=== PATIENT | female | born 1980 | race Caucasian/White ===

== ENCOUNTER → 2023-07-12 14:57 | Outpatient (BNVA) | payer MEDICAID, SELFPAY | PROVIDERS: Family Provider Family Medicine; PCP Family Medicine; Visit Provider Obstetrics & Gynecology | DX: Z01.419 Encounter for gynecological examination (general) (routine) without abnormal findings (principal); N93.9 Abnormal uterine and vaginal bleeding, unspecified | CPT/HCPCS: 87491; 87591; 87624 ==

== ENCOUNTER 2023-07-19 08:22 | Outpatient (CLI) | payer OTHER, MEDICAID, SELFPAY ==
--- NOTE | 2023-07-19 08:30 | US_ITS ---
WS: [id number] Complete ABDOMINAL ULTRASOUND HISTORY: R10.9 - Unspecified abdominal pain COMPARISON: None available. Liver: 14.8 cm in length. Normal size liver and echogenicity. No bile duct dilatation or mass. Portal Vein: Normal hepatopetal flow with monophasic waveform. Gallbladder: Normally distended gallbladder with no stones or wall thickening. CBD: 0.3 cm Pancreas: Partially visualized. Right kidney: 10.3 cm x 6.4 x 3.5 cm. Cortex:1.0 cm. Normal size and echogenicity. No hydronephrosis or mass. Left kidney: 10.2 cm x 5.8 cm x 4.0 cm. Cortex: 1.3 cm. Normal size and echogenicity. No hydronephrosis or mass. Spleen: 9.0 cm; normal. Aorta and IVC: Unremarkable abdominal aorta and IVC. Impression: Normal complete abdomen ultrasound.
--- NOTE | 2023-07-19 09:45 | US_ITS ---
WS: [id number] US pelvic complete* [id number] HISTORY: N92.0 - Excessive and frequent menstruation with regular ... COMPARISON: None available. Uterus: 9.1 cm x 6.1 cm x 4.5 cm. Anteverted uterus. Poorly visualized uterus and myometrium. No fibroid is identified. Endometrium: 1.4 cm. Normal size endometrium. Ovoid area of increased echogenicity in the fundus of t he endometrium measures 1.1 x 0.7 x 1.1 cm. Slight distortion of the central endometrial canal cavity . This is suspicious for a polyp. No increased vascularity was identified. Right ovary: 4.0 cm x 2.7 cm x 3.4 cm. Normal size and vascularity, no cystic or solid masses. Small follicles. No cystic or solid mass. Left ovary: 2.8 cm x 3.4 cm x 2.1 cm. Normal size and vascularity, no cystic or solid masses. No free fluid in the cul-de-sac. IMPRESSION: 1. Hyperechoic mass in the fundal portion of the endometrium measures 1.1 x 0.7 x 1.1 cm. Suspicious for an endometrial polyp. Recommend direct visualization and possible biopsy. 2. Poorly visualized uterus. No fibroid identified.
== END 2023-07-19 08:23 | disposition home or self-care (01) ==
LOC: RAD 08:23
PROVIDERS: PCP Family Medicine; Visit Provider Obstetrics & Gynecology
DX: R10.12 Left upper quadrant pain (principal); N92.0 Excessive and frequent menstruation with regular cycle
CPT/HCPCS: 76700; 76856

== ENCOUNTER 2023-07-25 09:38 | Outpatient (CLI) | payer OTHER, MEDICAID, SELFPAY ==
--- NOTE | 2023-07-25 10:00 | MM_ITS ---
WS: [id number] BILATERAL 3D TOMOSYNTHESIS DIGITAL SCREENING MAMMOGRAPHY WITH CAD CLINICAL INFORMATION: Z12.39 - Encounter for other screening for malignant neop... HISTORY: Screening mammogram. No current complaints. COMPARISON: Baseline TECHNIQUE: Bilateral CC and MLO views. FINDINGS: Scattered fibroglandular densities bilaterally. No suspicious focal mass, asymmetry, calcifications, or architectural distortion. No evidence of malignancy. IMPRESSION: MM/[place] [id number] BI-RADS: 1-Negative FOLLOW UP: 1 Year Follow-up Recommend return to annual screening mammography.
== END 2023-07-25 09:39 | disposition home or self-care (01) ==
LOC: RAD 09:39
PROVIDERS: PCP Family Medicine; Visit Provider Obstetrics & Gynecology
DX: Z12.31 Encounter for screening mammogram for malignant neoplasm of breast (principal)
CPT/HCPCS: 77063; 77067

== ENCOUNTER 2023-09-21 09:34 | Day surgery (SDC) | payer MEDICAID, SELFPAY ==
[2023-09-21] VITALS (12 sets, daily range): BP systolic 137–178; BP diastolic 93–110; PULSE 47–72; RESP 12–18; TEMP 36.3–36.4; O2SAT 93–100; BMI 30.8
--- NOTE | 2023-09-21 01:25 | W.PM.OPSFHP ---
Same Day Surgery H&P Indication for Procedure/HPI DATE OF PROCEDURE: September 21, 2023 CHIEF COMPLAINT/INDICATIONFOR SURGICAL PROCEDURE: abnormal uterine bleeding PREOP DIAGNOSIS: abnormal uterine bleeding PLANNED PROCEDURE: Operation Date: 09/21/23 11:15 Proposed Procedures p Hysteroscopy Hysteroscopy w/ Endometrial Sampling and possible endometrial polypectomy(Not Applicable) - Sarwat Barron MD 42 y.o. L8 (twins) h/o BTL periods normal and regular but extremely heavy endometrial polyp seen on pelvic sono now scheduled for hysteroscopy, endometrial sampling, possible endometrial polypectomy Medications/Allergies* Home Medications Medication Instructions Recorded Confirmed Type No Known Home Medications 07/12/23 09/20/23 History Allergies/Adverse Reactions Allergy/AdvReac Type Severity Reaction Status Date / Time No Known Allergies Allergy Verified 09/20/23 11:15 Pertinent History/Comorbid Conditions* Family History (Updated 07/12/23 @ 14:40 by Taylor Prakash LPN) Diabetes Grandfather Hypertension Mother Stroke Mother Denies family history of Colon cancer Ovarian cancer Prostate cancer Heart disease Hypercholesteremia Breast cancer Uterine cancer Thyroid disease Pertinent Exam Findings alert, oriented x 3, clear to auscultation bilaterally and regular rate & rhythm Pertinent Data Pelvic sono 07-19-23 uterus 9.1 x 6.1 x 4.5 cm Endometrium 1.4 cm Endometrial polyp 1.1 cm Normal ovaries Recommendations Surgery/Procedure today Coding Level of Care Code Acute Code for Chg Fwd Time Spent (min) 20
--- NOTE | 2023-09-21 10:07 | ANES.PREANE2 ---
Pre-Anesthetic Assessment Height/Weight: Height 1.6 m Preop Diagnosis: abnormal uterine bleeding Operation Date: 09/21/23 11:15 Proposed Procedures p Hysteroscopy Hysteroscopy w/ Endometrial Sampling and possible endometrial polypectomy(Not Applicable) - Sarwat Barron MD Social No alcohol and No tobacco Exam alert, oriented x 3, clear to auscultation bilaterally and regular rate & rhythm Airway Submandibular: within normal limits Cervical ROM: within normal limits Mallampati: Class I History/ROS No significant history except as noted Anesthetic Plan ASA status: 2 Anesthesia: General Medications/Allergies Home Medications Medication Instructions Recorded Confirmed Last Taken Type No Known Home Medications 07/12/23 09/20/23 Unknown History Allergies Allergy/AdvReac Type Severity Reaction Status Date / Time No Known Allergies Allergy Verified 09/20/23 11:15 [facility] Anesthesia Family History Mother Hypertension Stroke Grandfather Diabetes Denies family history of Colon cancer Ovarian cancer Prostate cancer Heart disease Hypercholesteremia Breast cancer Uterine cancer Thyroid disease Data Anesthesia Cardiac Studies: No Data to Display
[2023-09-21 10:18] LABS: OR HCG Qualitative Urine Negative (Negative)
[2023-09-21] MEDS: sodium chloride 0.9% 1,000 ML 30 ML IV (10:29)
--- NOTE | 2023-09-21 10:32 | W.PM.OPSUD ---
Surgery/Procedure H&P Update DATE OF PROCEDURE: September 21, 2023 DATE H&P PERFORMED: 09/21/23 H&P UPDATE INFORMATION: I have reviewed H&P completed within last 30 days, I have examined patient prior to procedure and No changes to prior documentation PREOP DIAGNOSIS: abnormal uterine bleeding PLANNED PROCEDURE: Operation Date: 09/21/23 11:15 Proposed Procedures p Hysteroscopy Hysteroscopy w/ Endometrial Sampling and possible endometrial polypectomy(Not Applicable) - Sarwat Barron MD
[2023-09-21] MEDS: midazolam 1 mg/mL INJ 2 mL 2 MG IVP (10:34)
--- NOTE | 2023-09-21 12:10 | PM.OP ---
Operative Report Date of procedure: September 21, 2023 Pre-op diagnosis: abnormal uterine bleeding Post-op diagnosis: same Post-op findings: moderate endometrial tissue in patches One 1 cm benign-appearing endometrial polyp Procedure done: Hysteroscopy Endometrial sampling and polypectomy with Myosure Implants: none Specimens removed/disposition: endometrial polyp and endometrial tissue Surgeon: Sarwat Barron MD Anesthesia: MAC Estimated blood loss (mL): 0 Complications: none Condition: stable Disposition: PACU Brief History: 42 y.o. h/o BTL periods normal and regular but extremely heavy endometrial polyp seen on pelvic sono Procedure: Informed consent signed. Patient was taken to the operating room. Anesthesia was induced. Patient was placed in dorsolithotomy position, prepped and draped for hysteroscopy. A bivalve speculum was placed in the vagina. The anterior lip of the cervix was grasped with a sharp-toothed tenaculum. The cervix was serially dilated with Hegar dilators. . A hysteroscope was placed into the endometrial cavity. The endometrial cavity was seen have patches of endometrial tissue. There were one 1 cm benign-appearing polyp. A Myosure was then inserted and the polyp was removed. Endometrial sampling was also done with the Myosure device. The endometrial cavity was seen to be intact. The hysteroscope and Myosure were then removed. Endometrial tissue was sent to pathology. The sharp-toothed tenaculum was removed. There was no bleeding from the endometrial cavity or cervix. The patient was then placed supine and awakened and taken to the PACU. Postop condition: stable EBL: none Sponge and instruments counts were normal x 2 Complications: none
--- NOTE | 2023-09-21 15:00 | ANE.PACU2 ---
Inpatient post-anesthesia follow up: Vital signs: Temperature 97.3 F Pulse Rate 64 Respiratory Rate 18 Blood Pressure 152/105 Pulse Oximetry 100 Oxygen Delivery Me thod Room Air Oxygen Flow Rate Fraction of Inspir ed Oxygen Hydration adequate: Yes Nausea and vomiting: No Pain level: 4 Mental status: Baseline
== END 2023-09-21 13:03 | disposition home or self-care (01) ==
PROVIDERS: Anesthesiology; PCP Family Medicine; Visit Provider Obstetrics & Gynecology
PROC: 0UJD8ZZ Inspection of Uterus and Cervix, Via Natural or Artificial Opening Endoscopic (ICD-10-PCS; CPT 58555; principal; 2023-09-21 11:05)
DX: N89.8 Other specified noninflammatory disorders of vagina (principal); N84.0 Polyp of corpus uteri
CPT/HCPCS: 58558; 81025; 88305; J1100; J1885; J2250; J2405; J2704; J3010; J7030

== ENCOUNTER 2023-09-27 11:15 | Outpatient (CLI) | payer MEDICAID, SELFPAY | END 2023-09-27 11:16 | disposition home or self-care (01) | PROVIDERS: PCP Family Medicine; Visit Provider Family Medicine | DX: B19.20 Unspecified viral hepatitis C without hepatic coma (principal) | CPT/HCPCS: 80053; 84443; 85025; 86705; 86706; 86709; 86803; 87340; 87522; 87806; 87902 ==

== ENCOUNTER 2023-11-01 13:00 | Outpatient (CLI) | payer MEDICAID, SELFPAY | END 2023-11-01 13:01 | disposition home or self-care (01) | LOC: LAB 13:01 | PROVIDERS: PCP Family Medicine; Visit Provider Family Medicine | DX: B19.20 Unspecified viral hepatitis C without hepatic coma (principal) | CPT/HCPCS: 87522 ==

== ENCOUNTER 2023-11-21 14:26 | Outpatient (CLI) | payer MEDICAID, SELFPAY ==
[2023-11-21 15:02] LABS: Blood Urea Nitrogen 10 mg/dL (6-20); Carbon Dioxide 19 mmol/L (22-29); Chloride 104 mmol/L (98-107); Glomerular Filtration Rate 109.1 mL/min (90-130); Glucose 125 mg/dL (65-115); Osmolality Calculated 283 mOsm/kg (285-295); Sodium 136 mmol/L (136-145)
[2023-11-21 15:08] LABS: Anion Gap 17.1 (5-19); Potassium 4.1 mmol/L (3.5-5.1)
[2023-11-21 15:24] LABS: Estmated Average Glucose 85; Hemoglobin A1C 4.6 % (4.0-6.0)
[2023-11-21 20:54] LABS: 25 Hydroxy Vitamin D 47 ng/mL (30-100); Vitamin B12 536 pg/mL (232-1245)
== END 2023-11-21 14:27 | disposition home or self-care (01) ==
LOC: LAB 14:27
PROVIDERS: PCP Family Medicine; Visit Provider Family Medicine
DX: R53.83 Other fatigue (principal); I10 Essential (primary) hypertension; R73.9 Hyperglycemia, unspecified
CPT/HCPCS: 36415; 80048; 82306; 82607; 83036

== ENCOUNTER 2023-12-26 10:50 | Day surgery (SDC) | payer BC, MEDICAID, SELFPAY ==
[2023-12-26 11:16] VITALS: BP 119/87; PULSE 61; RESP 18; TEMP 36.4; O2SAT 99; BMI 31.8
--- NOTE | 2023-12-26 11:16 | P.HPUD_ITS ---
Surgery/Procedure H&P Update DATE OF PROCEDURE: December 26, 2023 DATE H&P PERFORMED: 12/06/23 H&P UPDATE INFORMATION: I have reviewed H&P completed within last 30 days, I have examined patient prior to procedure, No changes to prior documentation and H&[place] [facility] [place] date indicated PLANNED PROCEDURE: Operation Date: 12/26/23 11:55 Proposed Procedures p Colonoscopy 03403, G0105, K59.09, R10.9(Not Applicable) - Everton Cruz MD
--- NOTE | 2023-12-26 11:16 | W.PM.OPSUD ---
Surgery/Procedure H&P Update DATE OF PROCEDURE: December 26, 2023 DATE H&P PERFORMED: 12/06/23 H&P UPDATE INFORMATION: I have reviewed H&P completed within last 30 days, I have examined patient prior to procedure, No changes to prior documentation and H&P is in [facility] on date indicated PLANNED PROCEDURE: Operation Date: 12/26/23 11:55 Proposed Procedures p Colonoscopy 27776, G0105, K59.09, R10.9(Not Applicable) - Everton Cruz MD
[2023-12-26] MEDS: sodium chloride 0.9% 1,000 ML 30 ML IV (11:20)
--- NOTE | 2023-12-26 12:10 | PC.NURSE ---
Difficult IV start. after 4 attempts per 2 nurses iv was placed in right foot per anesthesia without difficulty.
--- NOTE | 2023-12-26 12:13 | ANES.PREANE2 ---
Pre-Anesthetic Assessment Height/Weight: Height 1.6 m Weight 81.647 kg Temp Pulse Resp BP Pulse Ox O2 Del Method 97.5 F L 61 18 119/87 99 Room Air 12/26/23 11:16 12/26/23 11:16 12/26/23 11:16 12/26/23 11:16 12/26/23 11:16 12/26/23 11:16 Preop Diagnosis: Constipation Operation Date: 12/26/23 11:55 Proposed Procedures p Colonoscopy 86538, G0105, K59.09, R10.9(Not Applicable) - Everton Cruz MD Was Beta Amira taken within 24 hours: Yes Was Clonidine taken within 24 hours: N/A Last intake: Intake Last Liquid Date 12/26/23 Last Liquid Time 02:00 Last Solid Date 12/24/23 Last Solid Time 21:00 Social Tobacco Hx IV drug use Exam alert, oriented x 3, clear to auscultation bilaterally and regular rate & rhythm Airway Submandibular: within normal limits Cervical ROM: within normal limits Mallampati: Class II Dentition: full History/ROS No significant history except as noted and No significant complaints Pulmonary None reported CV/HEM Hypertension None reported Hepatic Hepatitis GI None reported Metabolic None reported Musc/skel None reported Neuropsych None reported Anesthetic Plan ASA status: 3 Anesthesia: Anesthesia Evaluation and MAC Risk of > 500 ml blood loss (7ml/kg in children): No Medications/Allergies Home Medications Medication Instructions Recorded Confirmed Last Taken Type blood pressure cuff #1 ea 11/01/23 12/26/23 Unknown Rx clonidine HCl 0.1 mg tablet 0.1 mg PO BID PRN high blood 11/28/23 12/26/23 Unknown History pressure venlafaxine 75 mg capsule,extended 75 mg PO DAILY #90 caps 12/04/23 12/26/23 12/25/23 Rx release 24 hr amlodipine 10 mg tablet 10 mg PO DAILY #30 tabs 12/26/23 12/26/23 12/26/23 09:00 Rx lisinopril 10 mg tablet 10 mg PO DAILY #30 tabs 12/26/23 12/26/23 12/25/23 Rx Allergies Allergy/AdvReac Type Severity Reaction Status Date / Time No Known Allergies Allergy Verified 12/21/23 10:53 Current Medications Generic Name Dose Route Start Last Admin Trade Name Freq PRN Reason Stop Dose Admin Sodium Chloride 1,000 mls @ 30 mls/hr 12/26/23 11:00 12/26/23 11:20 Sodium Chloride 0.9% IV 30 mls/hr .Q24H JEANA Administration PFSH Anesthesia Medical History Constipation Smoker Hepatitis C Surgical History History of bilateral tubal ligation History of hysteroscopy Family History Mother Hypertension Stroke Grandfather Diabetes Denies family history of Colon cancer Ovarian cancer Prostate cancer Heart disease Hypercholesteremia Breast cancer Uterine cancer Thyroid disease Social History Smoking and tobacco/nicotine status: current every day tobacco/nicotine user Data Anesthesia Cardiac Studies: No Data to Display
[2023-12-26 12:38] VITALS: BP 106/70; PULSE 63; RESP 18; TEMP 36.5; O2SAT 99
--- NOTE | 2023-12-26 15:11 | ANE.PACU2 ---
Inpatient post-anesthesia follow up: Airway intact: Yes Vital signs: Temperature 97.7 F Pulse Rate 63 Respiratory Rate 18 Blood Pressure 106/70 Pulse Oximetry 99 Oxygen Delivery Me thod Room Air Oxygen Flow Rate Fraction of Inspir ed Oxygen Hydration adequate: Yes Nausea and vomiting: No Pain level: 2 Mental status: Baseline
== END 2023-12-26 13:02 | disposition home or self-care (01) ==
PROVIDERS: PCP Family Medicine; Visit Provider Surgery
PROC: 0DJD8ZZ Inspection of Lower Intestinal Tract, Via Natural or Artificial Opening Endoscopic (ICD-10-PCS; CPT 45378; principal; 2023-12-26 11:55)
DX: K59.09 Other constipation (principal); K64.4 Residual hemorrhoidal skin tags; G89.29 Other chronic pain; I10 Essential (primary) hypertension; B19.20 Unspecified viral hepatitis C without hepatic coma; F17.200 Nicotine dependence, unspecified, uncomplicated
CPT/HCPCS: 45378; J2704; J7030

== ENCOUNTER → 2024-01-10 13:20 | Outpatient (BNVA) | payer BC, MEDICAID, SELFPAY | PROVIDERS: PCP Family Medicine; Referring Provider Family Medicine; Visit Provider Specialist | DX: G56.03 Carpal tunnel syndrome, bilateral upper limbs (principal); Z01.818 Encounter for other preprocedural examination | CPT/HCPCS: 36415; 73130; 80053; 81003; 81015; 85025 ==

== ENCOUNTER 2024-01-17 08:13 | Outpatient (CLI) | payer BC, MEDICAID, SELFPAY ==
--- NOTE | 2024-01-17 09:15 | CT_ITS ---
WS: [id number] CT ABDOMEN AND PELVIS WITH CONTRAST HISTORY: Abdominal pressure in upper right quad TECHNIQUE: Imaging performed of the abdomen and pelvis with IV contrast. Single phase imaging of the abdomen. Coronal and sagittal reformats are submitted. All CT scans at [facility] use at [facility] one of these dose optimization techniques: automated exposure control; mA and/or kV adjustment per patient size (includes targeted exams where dose is matched to clinical indication); or iterative re construction. IV CONTRAST: Omnipaque 350; 100 mL IV. Oral contrast: Yes. DLP: 499.94 mGy.cm COMPARISON: None available. Lower thorax: Lung bases are clear. Heart is normal size. No hiatal hernia. Liver/biliary system: Normal size liver. Mild focal fatty sparing along the falciform ligament. Renae l portal vein. Gallbladder: Normal. No gallstones or wall thickening. No pericholecystic fluid. Pancreas: Normal size pancreas and pancreatic duct. No adjacent inflammation. Spleen: Normal size spleen. No mass or infarct. Adrenal glands: Normal. Right kidney: Normal. Left kidney: Normal. Aorta: Normal. Lymphadenopathy: None. Free fluid: None. GI tract: Normal stomach. No small bowel obstruction. In the ascending colon there are adjacent areas of circumferential wall thickening with narrowing of the lumen which need to be further evaluated. T he longest luminal narrowing extends over a length of 3.8 cm in the ascending colon. Abdominal wall: Unremarkable abdominal wall. No hernia. Pelvis: No free fluid or adenopathy within the pelvis. LEFT ovarian follicles measure up to 2.1 cm. Bones: Unremarkable. CT/CT abdomen pelvis w con* [id number] IMPRESSION: 1. In the ascending colon there are 2 separate areas of luminal narrowing with circumferential wall thickening which need to be further evaluated for possibl e neoplasm. These could be separate areas of peristalsis resulting in luminal n arrowing. There also does appear to be slight change in caliber of the more pro ximal colon at this location. Recommend follow-up colonoscopy. 2. No ascites and no adenopathy.
[2024-01-17] MEDS: iohexol 350 mg/mL 500 mL Btl (per mL) PO (10:30)
[2024-01-17] MEDS: iohexol 350 mg/mL 500 mL Btl (per mL) IV (10:30)
== END 2024-01-17 08:14 | disposition home or self-care (01) ==
LOC: RAD 08:14
PROVIDERS: PCP Family Medicine; Visit Provider Surgery
DX: K63.89 Other specified diseases of intestine (principal); R10.9 Unspecified abdominal pain; G89.29 Other chronic pain
CPT/HCPCS: 36415; 73130; 74177; 80053; 81003; 81015; 85025; Q9967

== ENCOUNTER → 2024-01-19 09:17 | Outpatient (BNVA) | payer BC, MEDICAID, SELFPAY | PROVIDERS: PCP Family Medicine; Visit Provider Family Medicine | DX: Z01.818 Encounter for other preprocedural examination (principal) | CPT/HCPCS: 81003 ==

== ENCOUNTER 2024-02-08 05:49 | Day surgery (SDC) | payer BC, MEDICAID, SELFPAY ==
[2024-02-08] VITALS (11 sets, daily range): BP systolic 126–158; BP diastolic 81–100; PULSE 57–81; RESP 12–18; TEMP 36.5–36.7; O2SAT 97–100
[2024-02-08] MEDS: CELEcoxib 200 mg Capsule 400 MG PO (06:21)
[2024-02-08] MEDS: gabapentin 300 mg Capsule PO (06:22)
[2024-02-08] MEDS: sodium chloride 0.9% 1,000 ML 30 ML IV (06:31)
--- NOTE | 2024-02-08 06:35 | ANES.PREANE2 ---
Pre-Anesthetic Assessment Height/Weight: Height 5 ft 3 in Weight 186 lb Temp Pulse Resp BP Pulse Ox O2 Del Method 97.7 F 57 L 16 142/81 99 Room Air 02/08/24 06:05 02/08/24 06:05 02/08/24 06:05 02/08/24 06:05 02/08/24 06:05 02/08/24 06:05 Preop Diagnosis: Carpal tunnel syndrome Operation Date: 02/08/24 07:00 Proposed Procedures p Carpal Tunnel Release(Right) - Belem Winter MD Was Beta Amira taken within 24 hours: N/A Was Clonidine taken within 24 hours: Yes Last intake: Intake Last Liquid Date 02/07/24 Last Liquid Time 20:00 Last Solid Date 02/07/24 Last Solid Time 17:30 Social Tobacco and No alcohol Exam alert, oriented x 3, clear to auscultation bilaterally and regular rate & rhythm Airway Submandibular: within normal limits Cervical ROM: within normal limits Mallampati: Class II Dentition: other (Few missing teeth, denies any loose) Anesthetic Plan ASA status: 2 Anesthesia: General Other: No prior issues with anesthesia NPO since midnight History of hypertension, takes amlodipine, lisinopril and clonidine Prior hep C, completed treatment Labs reviewed 01/10/2024 Current smoker METs greater than 4 Plan for general anesthesia with LMA Medications/Allergies Home Medications Medication Instructions Recorded Confirmed Last Taken Type blood pressure cuff #1 ea 11/01/23 02/08/24 Unknown Rx clonidine HCl 0.1 mg tablet 0.1 mg PO BID PRN high blood 11/28/23 02/08/24 Unknown History pressure venlafaxine 75 mg capsule,extended 75 mg PO DAILY #90 caps 12/04/23 02/08/24 02/07/24 Rx release 24 hr amlodipine 10 mg tablet 10 mg PO DAILY #30 tabs 01/26/24 02/08/24 02/07/24 Rx lisinopril 10 mg tablet 10 mg PO DAILY #30 tabs 01/26/24 02/08/24 02/07/24 Rx Allergies Allergy/AdvReac Type Severity Reaction Status Date / Time No Known Allergies Allergy Verified 02/07/24 15:57 [facility] Anesthesia Medical History Constipation Smoker Hepatitis C Surgical History History of bilateral tubal ligation History of hysteroscopy Family History Mother Hypertension Stroke Grandfather Diabetes Denies family history of Colon cancer Ovarian cancer Prostate cancer Heart disease Hypercholesteremia Breast cancer Uterine cancer Thyroid disease Social History Smoking and tobacco/nicotine status: current every day tobacco/nicotine user Female Reproductive History Date of last menstrual period: 01/28/24 Data Anesthesia Cardiac Studies: No Data to Display
[2024-02-08] MEDS: acetaminophen 1,000 MG/100 ML PIGGYBACK 400 MG IV (06:37)
[2024-02-08 06:39] LABS: OR HCG Qualitative Urine Negative (Negative)
--- NOTE | 2024-02-08 06:57 | P.HPUD_ITS ---
Surgery/Procedure H&P Update DATE OF PROCEDURE: February 08, 2024 DATE H&P PERFORMED: 01/19/24 H&P UPDATE INFORMATION: I have reviewed H&P completed within last 30 days, I have examined patient prior to procedure, No changes to prior documentation and [place] [facility] [place] indicated PREOP DIAGNOSIS: Carpal tunnel syndrome PLANNED PROCEDURE: Operation Date: 02/08/24 07:00 Proposed Procedures p Carpal Tunnel Release(Right) - Belem Winter MD Related Problem List Diagnoses (1) Carpal tunnel syndrome on right:
[2024-02-08] MEDS: ceFAZolin 2,000 mg SDV 2000 MG IVP (06:59)
[2024-02-08] MEDS: BUPivacaine 0.5% INJ 30 mL XX (07:35)
--- NOTE | 2024-02-08 08:01 | P.OP_ITS ---
Operative Report Date of procedure: February 08, 2024 Pre-op diagnosis: Right carpal tunnel syndrome Post-op diagnosis: Right carpal tunnel syndrome Post-op findings: Very tight carpal canal with compression across the median nerve. Purplish discoloration and hourglass shape Procedure done: Right carpal tunnel release Implants: None Specimens removed/disposition: None Surgeon: Belem Winter MD Medical Collections Representative: None Anesthesia: General (Per LMA, ASA 2) Estimated blood loss (mL): 2 Tourniquet time (min): 14 (At 250 mmHg) IV fluids (mL): 650 Urine output (mL): 0 (No Garrett) Complications: None Findings: Severe compression across the median nerve with purplish discoloration and hourglass deformity Condition: stable Disposition: PACU (Then return to same-day surgery for discharge to home) Brief History: This 43-year-old woman presented with complaints of bilateral carpal tunnel syndrome. Her right was worse than her left. She had nerve conduction study documentation of severe entrapment at the right wrist with normal ulnar nerves. After discussion in the office, the patient wished to proceed with right carpal tunnel release. Risks and complications were discussed with her. Consents were signed and questions were answered. Procedure: The patient was brought to the operating theater. The patient had a general anesthesia per LMA, ASA 2. The tourniquet was elevated to 250 mmHg for a total tourniquet time of 14 minutes. The patient was also given Ancef 2 g preoperatively. The arm was then prepped and draped with DuraPrep in usual fashion with the arm draped free. A surgical pause was performed. At the time, the surgical pause, we confirmed the site and side of surgery. We also confirmed the patient's identity, appropriate and timely administration of preoperative antibiotics and preoperative surgical markings. An incision was then made along the thenar crease in a curvilinear fashion. Dissection continued through skin and soft tissues using a scalpel. The palmaris longus was identified along with the transverse carpal ligament. Each of these was released carefully to avoid injury to the median nerve. We were able to dissect gently into the carpal canal which was noted to be quite tight with significant compression across the median nerve. The nerve was visualized and was an hourglass shape with purplish discoloration. The canal was subsequently palpated to assure there was no bony encroachment upon the canal. There was a quite thickened fibrous tissue within the canal, and this was opened longitudinally as well. The canal was then palpated distally and proximally to assure that my small finger was passed easily without impingement. Finding this to be so, attention was directed to closure. The wound was irrigated with ropivacaine plain. It was then closed with 3-0 nylon in an interrupted mattress fashion. Sterile dressing was then placed consisting of Dermabond, OpSite, fluffed fluffs, sterile soft roll, and an Lior wrap. The tourniquet was released after 14 minutes. There were no complications. There were no specimens. The procedure was well tolerated. Plan is the patient will be discharged home. Related Problem List Diagnoses (1) Carpal tunnel syndrome on right:
--- NOTE | 2024-02-08 09:00 | ANE.PACU2 ---
Inpatient post-anesthesia follow up: Airway intact: Yes Vital signs: Temperature 98.1 F Pulse Rate 62 Respiratory Rate 18 Blood Pressure 149/100 Pulse Oximetry 97 Oxygen Delivery Me thod Room Air Oxygen Flow Rate Fraction of Inspir ed Oxygen Hydration adequate: Yes Nausea and vomiting: No Pain level: 1 Mental status: Baseline
== END 2024-02-08 09:00 | disposition home or self-care (01) ==
PROVIDERS: Student in an Organized Health Care Education/Training Program; PCP Family Medicine; Visit Provider Specialist
PROC: (CPT 64721; principal; 2024-02-08 07:00)
DX: G56.01 Carpal tunnel syndrome, right upper limb (principal); I10 Essential (primary) hypertension; Z86.19 Personal history of other infectious and parasitic diseases; F17.200 Nicotine dependence, unspecified, uncomplicated
CPT/HCPCS: 64721; 81025; J0131; J0690; J1100; J2250; J2371; J2405; J2704; J3010; J3490; J7030

== ENCOUNTER → 2024-02-26 16:19 | Outpatient (BNVA) | payer BC, MEDICAID, SELFPAY | PROVIDERS: PCP Family Medicine; Visit Provider Specialist | DX: Z01.818 Encounter for other preprocedural examination (principal) | CPT/HCPCS: 36415; 80053; 85025 ==

== ENCOUNTER 2024-03-21 05:44 | Day surgery (SDC) | payer BC, MEDICAID, SELFPAY ==
[2024-03-21] VITALS (10 sets, daily range): BP systolic 128–165; BP diastolic 87–97; PULSE 61–84; RESP 15–18; TEMP 36.2–36.3; O2SAT 98–100; BMI 32.1
--- NOTE | 2024-03-21 06:01 | ANES.PREANE2 ---
Pre-Anesthetic Assessment Height/Weight: Height 5 ft 3 in Operation Date: 03/21/24 07:00 Proposed Procedures p Carpal Tunnel Release(Left) - Belem Winter MD Was Beta Amira taken within 24 hours: N/A Was Clonidine taken within 24 hours: N/A (only takes PRN) Social Tobacco and No alcohol Exam alert, oriented x 3, clear to auscultation bilaterally and regular rate & rhythm Airway Submandibular: within normal limits Cervical ROM: within normal limits Mallampati: Class III Comments: Comments: Multiple missing teeth, denies any loose Anesthetic Plan ASA status: 3 Anesthesia: General Other: No prior issues with anesthesia. Patient recently had similar procedure in January under general anesthesia with LMA without issues NPO since yesterday History of hypertension on lisinopril, amlodipine and clonidine. Clonidine as needed Hepatitis C, completed treatment Labs reviewed 02/26/2024 and acceptable for procedure Plan for general anesthesia with LMA Medications/Allergies Home Medications Medication Instructions Recorded Confirmed Last Taken Type blood pressure cuff #1 ea 11/01/23 02/26/24 Unknown Rx clonidine HCl 0.1 mg tablet 0.1 mg PO BID PRN high blood 11/28/23 03/20/24 Unknown History pressure amlodipine 10 mg tablet 10 mg PO DAILY #30 tabs 02/28/24 03/20/24 03/20/24 Rx lisinopril 10 mg tablet 10 mg PO DAILY #30 tabs 02/28/24 03/20/24 03/20/24 Rx venlafaxine 75 mg capsule,extended See Rx Instructions .Route 03/08/24 03/20/24 03/20/24 Rx release 24 hr .COMPLEX #90 caps linaclotide 145 mcg capsule 145 mcg PO DAILY 03/13/24 03/20/24 03/20/24 History (Linzess) semaglutide (weight loss) 0.5 0.5 mg SUBCUT Q7D 03/13/24 03/20/24 03/08/24 History mg/0.5 mL subcutaneous pen injector Allergies Allergy/AdvReac Type Severity Reaction Status Date / Time No Known Allergies Allergy Verified 03/20/24 11:09 PENDING SALE TO [facility] Anesthesia Medical History Constipation Smoker Hepatitis C Surgical History History of bilateral tubal ligation History of hysteroscopy Family History Mother Hypertension Stroke Grandfather Diabetes Denies family history of Colon cancer Ovarian cancer Prostate cancer Heart disease Hypercholesteremia Breast cancer Uterine cancer Thyroid disease Social History Smoking and tobacco/nicotine status: current every day tobacco/nicotine user Data Anesthesia 03/21/24 06:23 Cardiac Studies: No Data to Display
[2024-03-21 06:17] LABS: OR HCG Qualitative Urine Negative (Negative)
[2024-03-21] MEDS: CELEcoxib 200 mg Capsule 400 MG PO (06:24)
[2024-03-21] MEDS: gabapentin 300 mg Capsule PO (06:25)
[2024-03-21] MEDS: acetaminophen 1,000 MG/100 ML PIGGYBACK 400 MG IV (06:26)
[2024-03-21] MEDS: sodium chloride 0.9% 1,000 ML 30 ML IV (06:28)
[2024-03-21 06:45] LABS: Blood Urea Nitrogen 12 mg/dL (6-20); Calcium 8.4 mg/dL (8.5-10.5); Carbon Dioxide 23 mmol/L (22-29); Chloride 105 mmol/L (98-107); Creatinine Clr Calc Pharmacy 122.6825; Glomerular Filtration Rate 109.1 mL/min (90-130); Glucose 85 mg/dL (65-115); Osmolality Calculated 283 mOsm/kg (285-295); Sodium 137 mmol/L (136-145)
[2024-03-21 06:46] LABS: Anion Gap 13.3 (5-19); Potassium 4.3 mmol/L (3.5-5.1)
--- NOTE | 2024-03-21 06:57 | P.HPUD_ITS ---
Surgery/Procedure H&P Update DATE OF PROCEDURE: March 21, 2024 DATE H&P PERFORMED: 02/26/24 H&P UPDATE INFORMATION: I have reviewed H&P completed within last 30 days, I have examined patient prior to procedure, No changes to prior documentation and [place] [facility] [place] indicated PLANNED PROCEDURE: Operation Date: 03/21/24 07:00 Proposed Procedures p Carpal Tunnel Release(Left) - Belem Winter MD Related Problem List Diagnoses (1) Carpal tunnel syndrome, left:
[2024-03-21] MEDS: ceFAZolin 2,000 mg SDV 2000 MG IVP (06:59)
[2024-03-21] MEDS: BUPivacaine 0.5% INJ 30 mL INJECTION (07:48)
--- NOTE | 2024-03-21 08:11 | PM.OP ---
Operative Report Date of procedure: March 21, 2024 Pre-op diagnosis: Left carpal tunnel syndrome Post-op diagnosis: Left carpal tunnel syndrome Post-op findings: Very tight carpal canal. Median nerve with discoloration. Procedure done: Left carpal tunnel release Implants: None Specimens removed/disposition: None Surgeon: Belem Winter MD Folder Machine Adjuster: None Anesthesia: General (Per LMA, ASA 3) Estimated blood loss (mL): 2 Tourniquet time (min): 22 (At 250 mmHg) IV fluids (mL): 600 Urine output (mL): 0 (No Garrett) Complications: None Findings: Severe compression across the median nerve consistent with carpal tunnel syndrome Condition: stable Disposition: PACU (Then return to same-day surgery for discharge to home) Brief History: This is an established 43-year-old woman who presents today for left carpal tunnel release. She underwent right carpal tunnel release uneventfully and January of this year. She healed nicely and wished to proceed with left carpal tunnel syndrome. She preoperatively has symptoms consistent with carpal tunnel syndrome. This is also confirmed by electrodiagnostic studies. While in the office, consents were signed and questions were answered. Procedure: The patient was brought to the operating theater. The patient had a general anesthesia per LMA, ASA 2. The tourniquet was elevated to 250 mmHg for a total tourniquet time of 14 minutes. The patient was also given Ancef 2 g preoperatively. The arm was then prepped and draped with DuraPrep in usual fashion with the arm draped free. A surgical pause was performed. At the time, the surgical pause, we confirmed the site and side of surgery. We also confirmed the patient's identity, appropriate and timely administration of preoperative antibiotics and preoperative surgical markings. An incision was then made along the thenar crease in a curvilinear fashion. Dissection continued through skin and soft tissues using a scalpel. The palmaris longus was identified along with the transverse carpal ligament. Each of these was released carefully to avoid injury to the median nerve. We were able to dissect gently into the carpal canal which was noted to be quite tight with significant compression across the median nerve. The nerve was visualized and was an hourglass shape with purplish discoloration. The canal was subsequently palpated to assure there was no bony encroachment upon the canal. There was a quite thickened fibrous tissue within the canal, and this was opened longitudinally as well. The canal was then palpated distally and proximally to assure that my small finger was passed easily without impingement. Finding this to be so, attention was directed to closure. The wound was irrigated with ropivacaine plain. It was then closed with 3-0 nylon in an interrupted mattress fashion. Sterile dressing was then placed consisting of Dermabond, OpSite, fluffed fluffs, sterile soft roll, and an Lior wrap. The tourniquet was released after 14 minutes. There were no complications. There were no specimens. The procedure was well tolerated. Plan is the patient will be discharged home. Related Problem List Diagnoses (1) Carpal tunnel syndrome, left:
--- NOTE | 2024-03-21 09:01 | ANE.PACU2 ---
Inpatient post-anesthesia follow up: Airway intact: Yes Vital signs: Temperature 97.4 F Pulse Rate 68 Respiratory Rate 17 Blood Pressure 155/88 Pulse Oximetry 99 Oxygen Delivery Me thod Room Air Oxygen Flow Rate 6 Fraction of Inspir ed Oxygen Hydration adequate: Yes Nausea and vomiting: No Pain level: 1 Mental status: Baseline
== END 2024-03-21 09:01 | disposition home or self-care (01) ==
PROVIDERS: Student in an Organized Health Care Education/Training Program; PCP Family Medicine; Visit Provider Specialist
PROC: (CPT 64721; principal; 2024-03-21 07:00)
DX: G56.02 Carpal tunnel syndrome, left upper limb (principal); I10 Essential (primary) hypertension; Z86.19 Personal history of other infectious and parasitic diseases; F17.200 Nicotine dependence, unspecified, uncomplicated
CPT/HCPCS: 64721; 36415; 80048; 81025; J0131; J0690; J2250; J2704; J3010; J3490; J7030

== ENCOUNTER → 2024-12-30 11:19 | Outpatient (BNVA) | payer MEDICAID, SELFPAY | PROVIDERS: PCP Family Medicine; Visit Provider Family Medicine | DX: R53.83 Other fatigue (principal) | CPT/HCPCS: 80053; 82306; 82607; 84443; 85025 ==